=== PATIENT | female | born 1990 | race Caucasian/White ===

== ENCOUNTER 2017-10-23 11:17 | Emergency (ER) | payer OTHER, BC ==
[2017-10-23 11:24] VITALS: RESP 16
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
[2017-10-23 12:52] VITALS: BP 135/75; PULSE 70; TEMP 97.5
== END 2017-10-23 13:00 | disposition home or self-care (01) ==
LOC: EC 11:17
DX: S16.1XXA Strain of muscle, fascia and tendon at neck level, initial encounter (principal); F07.81 Postconcussional syndrome; G44.309 Post-traumatic headache, unspecified, not intractable; Z88.0 Allergy status to penicillin; V89.2XXA Person injured in unspecified motor-vehicle accident, traffic, initial encounter; Y92.410 Unspecified street and highway as the place of occurrence of the external cause
CPT/HCPCS: 70450; 72072; 72125; 99284